=== PATIENT | female | born 1980 | race Caucasian/White ===

== ENCOUNTER → 2020-10-03 17:05 | Outpatient (CLI) | payer OTHER, SELFPAY ==
--- NOTE | 2020-10-03 17:11 | DI.MRI.S_ITS ---
PROCEDURE: MR KNEE LT WO CON INDICATIONS: PAIN IN LEFT KNEE TECHNIQUE: Noncontrast sagittal PD fast spin echo and T2 fast spin echo with fat saturation, sagittal 3-D FLASH with fat saturation; coronal T1 spin echo and PD fast spin echo with fat saturation, and axial PD fast spin echo with fat saturation through the knee. COMPARISON: None. FINDINGS: Menisci: Medial meniscus: Complex tear involving the body and posterior horn of the medial meniscus with abnormal signal extending to the periphery and undersurface. Lateral meniscus: Intact. Cruciate ligaments: Anterior cruciate ligament: Intact. Posterior cruciate ligament: Intact. Medial structures: The medial collateral ligament: Intact. Semimembranosus tendon: Intact. Visualized pes anserinus tendons: Intact. Bursal fluid: none. Lateral structures: The lateral collateral ligament intact. Biceps femoris tendon appears intact. Popliteus tendon grossly unremarkable. Iliotibial band appears intact. Anterior structures: Quadriceps tendon intact. Medial and lateral patellofemoral ligaments intact. Patellar tendon appears intact. Hoffa's fat pad unremarkable. There is deep infrapatellar bursal fluid. This raises the possibility of bursitis Bones and cartilage: Marrow: No focal marrow contusion or discrete low signal fracture line. Medial compartment: No focal cartilage defect. Lateral compartment: No focal cartilage defect. Patellofemoral compartment: Mild diffuse partial-thickness chondral loss and surface fraying of the femoral trochlear and patellar cartilage. Joint space: No joint effusion. No Geller's cyst. No specific evidence of intra-articular loose body. IMPRESSION: Complex tear involving the body and posterior horn of the medial meniscus. Patellofemoral chondromalacia. Deep infrapatellar bursitis. Dictated by: Alphonso Goncalves M.D. on 10/04/2020 at 8:43 Approved by: Alphonso Goncalves M.D. on 10/04/2020 at 9:01
== END ==
PROVIDERS: Referring Provider Family Medicine; Visit Provider Family Medicine
DX: M25.562 Pain in left knee (principal); S83.232A Complex tear of medial meniscus, current injury, left knee, initial encounter; M22.42 Chondromalacia patellae, left knee; M71.562 Other bursitis, not elsewhere classified, left knee
CPT/HCPCS: 73721

== ENCOUNTER → 2022-12-11 15:23 | Outpatient (CLI) | payer OTHER, SELFPAY ==
--- NOTE | 2022-12-11 | DI.NM.S_ITS ---
PROCEDURE: NM EXERCISE TREADMILL NON NUC COMPARISON: None INDICATIONS: Shortness of breath FINDINGS: Rest ECG sinus rhythm. Franki protocol 7:32, maximum heart rate 181 (102% of peak predicted), maximum blood pressure 182/82, 10.1 METS, MING +12%. Exercise ECG sinus tachycardia, no ST segment changes, ectopy or arrhythmia. The patient complained of 1 out of 10 chest pain that increased to 3 out of 10 at maximum exercise; discomfort resolved 30 seconds into recovery. IMPRESSION: Low risk study. No evidence of exercise-induced ischemia or arrhythmia. Normal hemodynamic response. Slightly reduced exercise capacity. Dictated by: Kimber Early D.O. on 12/11/2022 at 17:29 Approved by: Kimber Early D.O. on 12/11/2022 at 17:32
== END ==
PROVIDERS: Referring Provider Internal Medicine Cardiovascular Disease; Visit Provider Internal Medicine Cardiovascular Disease
DX: R07.89 Other chest pain (principal); R06.02 Shortness of breath; R00.0 Tachycardia, unspecified
CPT/HCPCS: 93017

== ENCOUNTER → 2023-07-17 16:09 | Outpatient (CLI) | payer OTHER, SELFPAY | LOC: RESP 16:09 | PROVIDERS: Referring Provider Nurse Practitioner Family; Visit Provider Nurse Practitioner Family | DX: R06.00 Dyspnea, unspecified (principal); Z87.891 Personal history of nicotine dependence | CPT/HCPCS: 94060 ==